=== PATIENT | female | born 1945 ===

== ENCOUNTER 2019-03-12 12:22 | Emergency (ER) | payer MEDICARE, MEDICAID ==
[2019-03-12 12:25] VITALS: BMI 25.7
[2019-03-12 12:26] VITALS: RESP 16; O2SAT 100
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
--- NOTE | 2019-03-12 14:52 | RAD ---
Date of service: 03/12/2019 PROCEDURE: Left Foot Radiographs. HISTORY: Posttraumatic left foot pain. COMPARISON: None. TECHNIQUE: 3 views obtained. FINDINGS: BONES: Normal. No fracture. JOINTS: Normal. SOFT TISSUES: Normal. OTHER FINDINGS: None. IMPRESSION: No acute findings related to/ accounting for the clinical presentation. Concordant results with the preliminary interpretation rendered by the emergency department physician procedure.
[2019-03-12] MEDS ORDERED: Bacitracin Ointment 30 GM TUBE ONE (16:16)
[2019-03-12 19:34] VITALS: BP 129/88; PULSE 89; TEMP 89.5
== END 2019-03-12 16:22 | disposition home or self-care (01) ==
LOC: H.ER 12:22
DX: T25.222A Burn of second degree of left foot, initial encounter (principal); T79.9XXA Unspecified early complication of trauma, initial encounter; E03.9 Hypothyroidism, unspecified; E11.9 Type 2 diabetes mellitus without complications; I10 Essential (primary) hypertension; X11.0XXA Contact with hot water in bath or tub, initial encounter